=== PATIENT | female | born 1950 | race Caucasian/White ===

== ENCOUNTER 2019-06-14 15:14 | Emergency (ER) | payer MEDICAID ==
[~2019-06-14] VITALS: Ht 162.6 cm; Wt 64.4 kg
[2019-06-14 15:21] VITALS: BP 151/76
[2019-06-14] MEDS ORDERED: CEPHALEXIN MONOHYDRATE 500 MG CAPSULE PO ONE ×2 (15:53→16:00)
--- NOTE | 2019-06-14 15:59 | NUR ---
For discharge- Patient discharged to home in stable condition. Written and verbal after care instructions given. Patient verbalizes understanding of instruction.
== END 2019-06-14 15:59 | disposition home or self-care (01) ==
LOC: ER 15:20
DX: L03.115 Cellulitis of right lower limb (principal); I83.91 Asymptomatic varicose veins of right lower extremity; I25.10 Atherosclerotic heart disease of native coronary artery without angina pectoris
CPT/HCPCS: 93971-TC

== ENCOUNTER 2019-06-16 15:19 | Emergency (ER) | payer MEDICAID ==
[~2019-06-16] VITALS: Ht 160 cm; Wt 64.0 kg
[2019-06-16 15:26] VITALS: BP 149/76
--- NOTE | 2019-06-16 15:30 | NUR ---
patient came in to the ER due to right leg cellulitis and was here 2 days ago for same reason. Per PT "the doctor told me to come back in 2 days". Ambulatory with steady gait, no apin at this time. breathing evenly and unlabored. kept comfortable, will continue to monitor accordingly.
== END 2019-06-16 16:06 | disposition home or self-care (01) ==
LOC: ER 15:19
DX: L03.115 Cellulitis of right lower limb (principal); I25.10 Atherosclerotic heart disease of native coronary artery without angina pectoris